=== PATIENT | male | born 1955 | race Caucasian/White ===

== ENCOUNTER → 2023-12-21 | Outpatient (CLI) | payer MEDICARE, SELFPAY ==
[2023-12-21 12:17] LABS: Absolute Lymphocyte Count 2.22 X10^3/uL (0.83-4.51); Absolute Neutrophil Count 6.8 X10^3/uL (2.0-7.7); Eosinophil# 0.48 X10^3/uL; Eosinophils% 4.6 % (0-5); Hemoglobin 15.4 g/dL (13.0-16.5); Lymphocyte # 2.22 X10^3/ul (0.83-4.51); Lymphocyte % 21.2 % (19-41); Mean Corp Hgb Conc 32.1 g/dL (32-36); Mean Corpuscular Hgb 27.5 pg (27.0-32.0); Mean Corpuscular Volume 85.9 fL (80-94); Mean Platelet Vol. 8.6 fl (6.2-12.0); Monocyte# 0.86 X10^3/uL; Monocyte% 8.2 % (0-10); NRBC Flagged by Analyzer 0 % (0-5); Neutrophil # 6.79 X10^3/uL (2.7-7.7); Neutrophil % 64.8 % (47-70); Platelet Count 350 K/mm3 (150-450); RBC Distribution Width CV 12.3 % (11.6-14.6); RBC Distribution Width SD 38.5 fl (35.1-43.9); Red Blood Count 5.59 M/mm3 (4.6-6.2); White Blood Count 10.5 K/mm3 (4.4-11.0)
[2023-12-21 13:00] LABS: ALB/GLOB Ratio 0.9 RATIO (0.9-2.4); AST(SGOT) 18 U/L (15-37); Alanine Aminotransfer ALT/SGPT 29 U/L (16-61); Albumin, Serum 3.3 g/dL (3.2-5.0); Alkaline Phosphatase 106 U/L (45-117); Anion Gap 6 (5-15); BUN 14 mg/dL (7-18); BUN/Creat Ratio 18.1 RATIO (10-20); Calcium,Total 8.5 mg/dL (8.5-10.1); Chloride 109 mmol/L (98-107); Cholesterol 133 mg/dL (200); Creatinine, Serum 0.77 mg/dL (0.70-1.30); EST Glomerular Filtration Rate 107 mL/min (>60); Est Glom Filt Rate - Afr Amer 129 mL/min (>60); Globulin 3.6 g/dL (2.2-4.2); Glucose 161 mg/dL (74-106); High Density Lipoprotein 29 mg/dL; PSA,Total - Annual Screen 0.62 ng/mL (0.00-4.00); Potassium 4.4 mmol/L (3.5-5.1); Protein, Total 6.9 g/dL (6.4-8.2); Sodium Level 140 mmol/L (136-145); Triglycerides 157 mg/dL; Very Low Density Lipoprotein 31 mg/dL (5-40)
[2023-12-21 13:24] LABS: Hemoglobin A1c 7.6 % (3.8-5.6)
== END | disposition home or self-care (01) ==
PROVIDERS: PCP Family Medicine; Referring Provider Family Medicine; Visit Provider Family Medicine
DX: I10 Essential (primary) hypertension (principal); E11.9 Type 2 diabetes mellitus without complications; Z79.899 Other long term (current) drug therapy; Z12.5 Encounter for screening for malignant neoplasm of prostate
CPT/HCPCS: 36415; 80053; 80061; 83036; 84153; 85025; G0103

== ENCOUNTER → 2024-02-16 | Outpatient (CLI) | payer MEDICARE, SELFPAY ==
[2024-02-16 12:14] LABS: Absolute Lymphocyte Count 2.09 X10^3/uL (0.83-4.51); Absolute Neutrophil Count 6.6 X10^3/uL (2.0-7.7); Basophil# 0.08 X10^3/uL; Basophil% 0.8 % (0-1); Eosinophil# 0.53 X10^3/uL; Eosinophils% 5.2 % (0-5); Hematocrit 47.9 % (40-54); Hemoglobin 15.8 g/dL (13.0-16.5); Lymphocyte # 2.09 X10^3/ul (0.83-4.51); Lymphocyte % 20.7 % (19-41); Mean Corpuscular Volume 84.9 fL (80-94); Mean Platelet Vol. 8.1 fl (6.2-12.0); Monocyte# 0.76 X10^3/uL; Monocyte% 7.5 % (0-10); NRBC Flagged by Analyzer 0 % (0-5); Neutrophil # 6.63 X10^3/uL (2.7-7.7); Neutrophil % 65.5 % (47-70); Platelet Count 350 K/mm3 (150-450); RBC Distribution Width CV 12.5 % (11.6-14.6); RBC Distribution Width SD 38.5 fl (35.1-43.9); Red Blood Count 5.64 M/mm3 (4.6-6.2); White Blood Count 10.1 K/mm3 (4.4-11.0)
[2024-02-16 13:16] LABS: AST(SGOT) 16 U/L (15-37); Alanine Aminotransfer ALT/SGPT 32 U/L (16-61); Albumin, Serum 3.5 g/dL (3.2-5.0); Alkaline Phosphatase 132 U/L (45-117); Anion Gap 6 (5-15); BUN 11 mg/dL (7-18); BUN/Creat Ratio 13.9 RATIO (10-20); Calcium,Total 9.4 mg/dL (8.5-10.1); Chloride 104 mmol/L (98-107); Cholesterol 148 mg/dL (200); Creatinine, Serum 0.79 mg/dL (0.70-1.30); EST Glomerular Filtration Rate 104 mL/min (>60); Est Glom Filt Rate - Afr Amer 125 mL/min (>60); Globulin 3.4 g/dL (2.2-4.2); Glucose 236 mg/dL (74-106); High Density Lipoprotein 37 mg/dL; Potassium 4.5 mmol/L (3.5-5.1); Protein, Total 6.9 g/dL (6.4-8.2); Sodium Level 136 mmol/L (136-145); Triglycerides 99 mg/dL; Very Low Density Lipoprotein 20 mg/dL (5-40)
[2024-02-16 14:27] LABS: Hemoglobin A1c 8.3 % (3.8-5.6)
== END | disposition home or self-care (01) ==
PROVIDERS: PCP Family Medicine; Referring Provider Family Medicine; Visit Provider Family Medicine
DX: I10 Essential (primary) hypertension (principal); E11.9 Type 2 diabetes mellitus without complications; Z12.5 Encounter for screening for malignant neoplasm of prostate; Z79.899 Other long term (current) drug therapy
CPT/HCPCS: 36415; 80053; 80061; 83036; 85025